=== PATIENT | female | born 1970 | race Caucasian/White ===

== ENCOUNTER 2017-08-31 11:55 | Inpatient (IN) | payer MEDICAID, OTHER ==
[~2017-08-31] VITALS: Ht 170.2 cm; Wt 108.2 kg
[2017-08-31] MEDS ORDERED: HALOPERIDOL IM 5 MG/ML VIAL ONE ×2 (12:21→14:05)
[2017-08-31] MEDS ORDERED: LORazepam 2 MG/ML VIAL ONE (12:22)
[2017-08-31 12:29] VITALS: BP 152/82
--- NOTE | 2017-08-31 12:30 | NUR ---
PT CHARLES FROM HOME FOR EVALUATION OF AGGRESSIVE BEHAVIOR. PER MOTHER PT LASHING OUT AT FAMILY, ATTEMPTING TO STRIKE THEM, BEGAN BEATING HER FISTS ON THE WALL AND BANGING HER HEAD ON THE WALL. HX OF SEVERE MENTAL RETARDATION. SKIN IS PINK/WARM/DRY; LUNGS CLEAR BL; HR EVEN AND REGULAR; PT DENIES ANY FEVER, CP, SOB, OR COUGH AT THIS TIME; PATIENT STATES PAIN OF 0/10 AT THIS TIME;PATIENT POSITIONED FOR COMFORT; HOB ELEVATED; BEDRAILS UP X2; BED DOWN. ALL MONITORS IN PLACED;ER MD MADE AWARE OF PT STATUS.
--- NOTE | 2017-08-31 12:33 | NUR ---
[facility] [facility] AT BEDSIDE.
[2017-08-31] MEDS ORDERED: LORazepam 2 MG/ML VIAL IM/IVP PRN (12:40)
[2017-08-31] MEDS ORDERED: HALOPERIDOL IM 5 MG/ML VIAL IM ONE ×2 (12:40→14:20)
--- NOTE | 2017-08-31 12:45 | NUR ---
PER MOTHER, SHE CALLED [facility] LAST WEDNESDAY REGARDING PATIENT AND TOLD [facility] TOLD HER THAT THEY CAN NOT DO ANYTHING FOR HER.
--- NOTE | 2017-08-31 12:50 | NUR ---
PER OFFICER TALIA ZEE # [id number] FROM [facility],HE CONTACTED [facility] REGARDING PATIENTS BEHAVIOUR AND [facility] TOLD OFFICER THAT THEY WILL GO TO [facility], BUT SINCE PATIENT WAS TAKEN TO ER,THEY WILL CONTACT MOTHER. PER MOTHER,PATIENTS DOCTOR STOPPED HER MEDS. X1YEAR AGO.
--- NOTE | 2017-08-31 12:55 | NUR ---
HODAN TALKING TO OFFICER TALIA ZEE #114
--- NOTE | 2017-08-31 13:00 | NUR ---
PER OFFICER TALIA ZEE,#[address] PATIENT ON 5150 HOLD BECAUSE PATIENT IS UNDER THE CARE OF A PSYCHIATRIST. ERMD AWARE.
[2017-08-31 13:42] LABS: BASOPHILS # (AUTO) 0.3 K/uL (0.00-0.22); EOSINOPHILS # (AUTO) 0.1 K/uL (0-0.4); HEMATOCRIT 41.2 % (36-48); HEMOGLOBIN 14.1 g/dL (12.0-16.0); LYMPHOCYTES # (AUTO) 0.9 K/uL (2.5-16.5); MEAN CORPUSCULAR HEMOGLOBIN 31 pg (27-31); MEAN CORPUSCULAR HGB CONC 34 g/dL (33-37); MEAN CORPUSCULAR VOLUME 91 fL (80-94); MONOCYTES # (AUTO) 0.5 K/uL (0.8-1.0); PLATELET COUNT (AUTO) 129 K/uL (140-450); RED BLOOD CELL COUNT(AUTO) 4.52 MIL/uL (4.20-5.40); RED CELL DISTRIBUTION WIDTH 12.5 % (11.6-13.7); WHITE BLOOD COUNT (AUTO) 5.8 K/uL (4.8-10.8)
[2017-08-31 13:54] LABS: ANION GAP 12.6 (8-16); CHLORIDE 107 mmol/L (98-107); GFR ARICAN-AMERICAN 76 mL/min (>90); GLUCOSE 110 mg/dL (74-106); POTASSIUM 3.6 mmol/L (3.5-5.1); SODIUM SERUM 138 mmol/L (136-145); UREA NITROGEN, BLOOD 12 mg/dL (7-18)
[2017-08-31 13:59] LABS: ALBUMIN 4.1 g/dL (3.4-5.0); ASPARTATE AMINOTRANSFERASE 25 U/L (15-37); TOTAL BILIRUBIN 0.5 mg/dL (0.0-1.0)
[2017-08-31 13:59] LABS: APPEARANCE,URINE CLEAR (CLEAR); BILIRUBIN,URINE NEGATIVE (NEGATIVE); BLOOD, URINE 1+ (NEGATIVE); COLOR,URINE YELLOW (YELLOW); LEUKOCYTE ESTERASE ,URINE NEGATIVE (NEGATIVE); NITRITE, URINE NEGATIVE (NEGATIVE); PH,URINE 5.5 (5.0-9.0); UGLUCOSE NEGATIVE (NEGATIVE)
[2017-08-31] MEDS ORDERED: NACL 0.9% 1,000 ML IV SCH (13:59)
[2017-08-31 14:00] LABS: ACETAMINOPHEN < 0.5 ug/ml (10-30); SALICYLATE < 2.8 mg/dL (2.8-20.0)
[2017-08-31] MEDS ORDERED: ONDANSETRON 4 MG/2 ML VIAL IVP PRN (14:00)
[2017-08-31] MEDS ORDERED: MORPHINE SULFATE 2 MG/ML SYR IVP PRN (14:00)
[2017-08-31] MEDS ORDERED: ACETAMINOPHEN 325 MG TAB PO PRN (14:00)
[2017-08-31 14:06] LABS: BARBITURATE, URINE NEG. ng/ml (NEG <=200); BENZODIAZEPINE, URINE NEG. ng/mL (NEG <=200); CANNABINOID, URINE NEG. ng/mL (NEG <=50); COCAINE, URINE NEG. ng/mL (NEG <=300); OPIATE, URINE NEG. ng/mL (NEG <=2000); PHENCYCLIDINE SCREEN,URINE NEG. ng/mL (NEG <=25)
[2017-08-31 14:09] LABS: RBC,URINE 3-10 (FEW) /HPF (0-5); WBC,URINE 0-5 (RARE) /HPF (0-5)
--- NOTE | 2017-08-31 14:30 | NUR ---
NYLON RESTRAINT WAS SWITCH TO SOFT RESTRAINT;
--- NOTE | 2017-08-31 14:54 | NUR ---
Patient will be admitted to care of DR VANN. Admited to ICU. Will go to room 5. Belongings list completed. Report to TIMOTHY GRESHAM.
[2017-08-31 15:15] VITALS: BP 140/89
--- NOTE | 2017-08-31 15:15 | NUR ---
PT TRANSFERRED TO ICU FROM ER VIA [facility] X 2 ASSISTS. PT IS AWAKE, AAO X 1, ABLE TO FOLLOW SIMPLE COMMANDS. PT IS WELSH SPEAKING. COOPERATIVE AND NO AGITATION NOTED AT THIS TIME. SR ON MONITOR. ON ROOM AIR, O2 SAT 95%. BOWEL SOUNDS ACTIVE X 4 QUADRANTS. SALINE LOCK TO RIGHT FOREARM INTACT AND PATENT WITH GOOD BLOOD RETURN. LAZARO CATH IN PLACE DRAINING URINE TO GRAVITY DRAINAGE BAG. SKIN INTACT. BED IN LOWEST POSITION AND CALL LIGHT WITHIN REACH. NEEDS WELL ATTENDED. WILL CONTINUE TO MONITOR.
[2017-08-31] MEDS: LORazepam 2 MG/ML VIAL IVP PRN ×2 (16:05→21:12)
--- NOTE | 2017-08-31 16:05 | NUR ---
PT BECOMES AGITATED AND TRIES TO GET UP. ADMINISTERED ORDERED ATIVAN. NO SOB OR OTHER SIGNS OF ACUTE DISTRESS NOTED AT THIS TIME. WILL CONTINUE TO MONITOR.
[2017-08-31 18:00] VITALS: BP 111/73
--- NOTE | 2017-08-31 18:19 | NUR ---
DR. RODRIGUEZ CAME TO SEE AND EXAMINE PT. WILL FOLLOW UP WITH NEW ORDERS.
--- NOTE | 2017-08-31 18:20 | NUR ---
PT REFUSED DINNER. RESTING COMFORTABLY AT THIS TIME.
--- NOTE | 2017-08-31 19:15 | NUR ---
RECEIVED REPORT FROM TIMOTHY TITUS AT BEDSIDE, PT IS AOX1, MENTALLY DELAYED, ABLE TO FOLLOW SIMPLE COMMANDS. NO S/SX OF RESPIRATORY DISTRESS, CLEAR LUNG SOUNDS. SR ON UNDER GROUND MINER. SOFT ABDOMEN WITH ACTIVE BOWEL SOUNDS, LAZARO CATHETER IN PLACE WITH CLEAR YELLOW URINE IN BAG, ABLE TO MOVE ALL EXTREMITIES. SKIN IS INTACT, WARM AND DRY TO TOUCH, PERIPHERAL IV LINE TO RIGHT FOREARM, 20GA, RUNNING D5 1/2 NS AT 100ML/HR. SAFETY PRECAUTION AND MAINTAINED, VSS, FLACC 0, WILL CONTINUE TO MONITOR.
[2017-08-31] MEDS: DEXT 5% / NACL 0.45% 1,000 ML IV SCH (19:31)
[2017-08-31 19:34] LABS: FREE T4 (FREE THYROXINE) 1.03 ng/dL (0.76-1.46); THYROID STIMULATING HORMONE 3.21 uIU/mL (0.34-3.74)
[2017-08-31 20:00] VITALS: BP 151/91
--- NOTE | 2017-08-31 20:00 | NUR ---
OFFERED FOOD TO PT, PT REFUSED.
--- NOTE | 2017-08-31 21:15 | NUR ---
PT IS AGITATED, TRYING TO PULL OUT THE IV LINE, ATIVAN GIVEN.
[2017-08-31 22:00] VITALS: BP 148/78
[2017-09-01] VITALS (9 sets, daily range): BP systolic 102–147; BP diastolic 55–96
--- NOTE | 2017-09-01 | NUR ---
PT IS ASLEEP IN BED, NO S/S OF DISTRESS, VSS.
--- NOTE | 2017-09-01 02:00 | NUR ---
NO CHANGE OF CONDITION AT THIS TIME, PT IS ASLEEP, VSS.
--- NOTE | 2017-09-01 04:00 | NUR ---
AM CARE PROVIDED, LAZARO CATHETER CARE PROVIDED.
[2017-09-01] MEDS: DEXT 5% / NACL 0.45% 1,000 ML IV SCH (04:19)
--- NOTE | 2017-09-01 06:00 | NUR ---
NO CHANGE OF CONDITION AT THIS TIME, VSS.
--- NOTE | 2017-09-01 07:20 | NUR ---
RECEIVED A REPORT FROM RADHA DICKEY RN. PT IS AWAKE AND VERBALLY RESPONSIVE WITH TAJIK SPEAKING AND LIMITED ALGERIAN. CONFUSED AND ORIENTED TO NAME ONLY. NO S/SX OF RESPIRATORY DISTRESS AND DENIES ANY PAIN. SR ON THE MONITOR. PERIPHERAL IV SITE ON RFA #20G, PATENT AND INTACT. NO EDEMA NOTED. LAZARO CATHETER DRAINING CLEAR YELLOW URINE. SAFETY PRECAUTION, BED IN LOW POSITION, CALL LIGHT WITHIN REACH. WILL CONTINUE TO MONITOR.
[2017-09-01] MEDS ORDERED: ENOXAPARIN 30 MG/0.3 ML SYR SUBQ SCH (09:00)
--- NOTE | 2017-09-01 09:25 | NUR ---
PT STABLE AND TOLERATED MEDICATION WELL. WILL CONTINUE TO MONITOR.
--- NOTE | 2017-09-01 10:16 | NUR ---
PAGED AND LEFT MESSAGE TO DR. SEGOVIA. STILL AWAITING FOR CALLBACK.
--- NOTE | 2017-09-01 11:25 | NUR ---
PT STABLE. DENIES PAIN AND ANY DISCOMFORT AT THIS TIME.
--- NOTE | 2017-09-01 11:55 | NUR ---
PAGED AND LEFT MESSAGE TO DR. SEGOVIA FOR FOLLOW UP. STILL AWAITING FOR CALLBACK.
--- NOTE | 2017-09-01 12:56 | NUR ---
FAXED INITIAL REVIEW TO [facility] [phone] PHONE JESSICA [phone]
--- NOTE | 2017-09-01 13:15 | NUR ---
DR. SEGOVIA IN TO SEE PT. WILL FOLLOW UP ON ORDERS
--- NOTE | 2017-09-01 14:36 | NUR ---
PER DR. ESGOVIA PT IS CLEAR FOR DISCHARGE HOME AND PAGED DR. BHANDARI BOATBUILDER SUPERVISOR FOR DR. VANN. WAITING FOR CALLBACK.
--- NOTE | 2017-09-01 14:40 | NUR ---
DR. RODRIGUEZ CALLED BACK AND STATED THAT PT DISCHARGE HOME TODAY.
[2017-09-01] MEDS ORDERED: INFLUENZA VIRUS VACCINE QUAD 0.5 ML SYR IMVAC SCH (15:10)
--- NOTE | 2017-09-01 15:40 | NUR ---
DR. RODRIGUEZ IN TO SEE PT. WILL FOLLOW UP ON ORDERS.
[2017-09-01] MEDS ORDERED: GABA300C PO (16:21)
[2017-09-01] MEDS ORDERED: LORA-476 PO (16:21)
--- NOTE | 2017-09-01 16:30 | NUR ---
AFTER REMOVED LAZARO CATHETER, PT VOIDS WELL IN THE BEDSIDE COMMODE
[2017-09-01] MEDS ORDERED: LORazepam 2 MG/ML VIAL IM SCH (16:45)
--- NOTE | 2017-09-01 16:50 | NUR ---
PT'S MOTHER IS HERE TO DISCHARGE PT TO HOME.
--- NOTE | 2017-09-01 17:22 | NUR ---
DISCHARGE INSTRUCTION GIVEN AND SIGNED BY MOTHER OF THE PT.
--- NOTE | 2017-09-01 17:23 | NUR ---
IV DC'D, CANNULA INTACT. ALL PRESCRIPTION GIVEN AND ALL QUESTIONS ANSWERED REGARDING DISCHARGE. WRIST BAND WAS REMOVED. PT AMBULATED STEADY GAIT AND LEFT WITH MOTHER AND FAMILY FRIEND.
== END 2017-09-01 17:23 | disposition home or self-care (01) | DRG 751 ==
LOC: MED 11:55 → MIC 14:53
PROVIDERS: ADMIT Internal Medicine Pulmonary Disease; ATTEND Internal Medicine Pulmonary Disease
DX: F23 Brief psychotic disorder (principal); F72 Severe intellectual disabilities; E66.9 Obesity, unspecified; Z68.37 Body mass index [BMI] 37.0-37.9, adult; Z86.718 Personal history of other venous thrombosis and embolism; Z78.1 Physical restraint status
CPT/HCPCS: 36415; 51702; 80053; 80305; 81001; 81025; 84439; 84443; 85025; 87081; 90658; 96372; 99285; G0480; G0482; J1630; J1650; J2060; J7030